=== PATIENT | female | born 1935 | race Caucasian/White ===

== ENCOUNTER 2018-08-25 16:50 | Emergency (ER) | payer OTHER, BC ==
[2018-08-25 17:10] VITALS: BP 187/86; PULSE 82; TEMP 97.7; BMI 23.3
[2018-08-25] MEDS ORDERED: ACETAMINOPHEN 500 MG TABLET (FP) PO ONE (17:17)
--- NOTE | 2018-08-25 17:17 | PDOC ---
Attending Attestation - Resident Resident Name: Shelby Adams - ED Attending Attestation I have performed the following: I have examined & evaluated the patient, The case was reviewed & discussed with the resident, I agree w/resident's findings & plan, Exceptions are as noted - HPI HPI: 08/25/18 17:13 82 yo F with h/o afib on coumadin here s/p slip and fall, fell forward landing on hands and knees. hitting forehead. happened earlier today. hit forehead. no LOC. no neck or back pain. left knee pain worse with walking. no pain when sitting. no hip or ankle pain. pt has had prior , knee surgery [facility] many years ago. did not take naything for pain prior to arrival. did not suffer any abrasions or lacerations. - Physicial Exam PE: 08/25/18 17:14 awake alert head atraumatic. no cervical spine tenderness. lungs clear bilaterally heart rrr no mrg abd soft nt nd. ext wwp. ext wwp . left knee with large hematoma eccymosis anterior. can range to extend to to 120, full flexion. no laxity ankle and hip NT/ - Medical Decision Making 08/25/18 18:34 s/p fall on coumadin, and hit head. plan xray knee r/o fx, hardward misplacement. ct head due to fact on coumadin and hit head. INR to evaluate coagulopathy. xray knee negative for fx.
[2018-08-25] MEDS ORDERED: ACETAMINOPHEN 500 MG TABLET (FP) ONE (17:18)
--- NOTE | 2018-08-25 17:38 | PDOC ---
History of Present Illness - General Chief Complaint: Injury Stated Complaint: left knee pain Time Seen by Provider: 08/25/18 17:10 History Source: Patient Exam Limitations: No Limitations - History of Present Illness Initial Comments: 08/25/18 17:36 Pt is an 82yo F with PMH of Afib (on coumadin), HTN, IDDM, L knee arthroplasty "years ago" presenting to ED s/p fall on carpet at niece's home. She was walking with her cane when she tripped and landed on her knees, hands and hit her forehead. Denies LOC. Knee was painful and swollen. She states the ROM is normal for her, just pain and swelling. No other pain. No chest pain, SOB, foot pain, numbness/tingling. Past History - Past Medical History Allergies/Adverse Reactions: Allergies Allergy/AdvReac Type Severity Reaction Status Date / Time Sulfa (Sulfonamide Allergy Rash Verified 08/25/18 16:51 Antibiotics) Home Medications: Ambulatory Orders Cholecalciferol (Vitamin D3) [Vitamin D-400] 400 unit PO DAILY 08/25/18 Digoxin [Lanoxin -] 0.125 mg PO DAILY 08/25/18 Diltiazem Cd [Cardizem Cd -] 180 mg PO DAILY 08/25/18 Gabapentin 300 mg PO HS 08/25/18 Insulin Aspart [Novolog] 8 unit SQ TID 08/25/18 Insulin Glargine,Hum.rec.anlog [Lantus Solostar] 26 unit SQ HS 08/25/18 Losartan Potassium 100 mg PO DAILY 08/25/18 Metoprolol Succinate 150 mg PO DAILY 08/25/18 Warfarin Na [Coumadin Protocol] 1 each PO ASDIR 08/25/18 Warfarin Sodium [Coumadin] 2 mg PO ASDIR 08/25/18 Cardiac Disorders: Yes COPD: No Diabetes: Yes HTN: Yes - Suicide/Smoking/Psychosocial Hx Smoking History: Never smoked Have you smoked in the past 12 months: No Information on smoking cessation initiated: No Hx Alcohol Use: No Drug/Substance Use Hx: No Review of Systems - Review of Systems Constitutional: No: Symptoms Reported HEENTM: No: Symptoms Reported Respiratory: No: Symptoms reported Cardiac (ROS): No: Symptoms Reported ABD/GI: No: Symptoms Reported : No: Symptoms Reported Musculoskeletal: Yes: See HPI, Joint Swelling (L knee), Other (L knee pain) Integumentary: No: Symptoms Reported Neurological: No: Symptoms reported *Physical Exam - Vital Signs Last Vital Signs Temp Pulse Resp BP Pulse Ox 97.7 F 82 20 187/86 H 98 08/25/18 16:51 08/25/18 16:51 08/25/18 16:51 08/25/18 16:51 08/25/18 16:51 - Physical Exam General Appearance: Yes: Nourished, Appropriately Dressed. No: Apparent Distress HEENT: positive: EOMI, KARO Neck: positive: Trachea midline, Supple Respiratory/Chest: positive: Lungs Clear, Normal Breath Sounds Cardiovascular: positive: S1, S2, Irregularly Irregular. negative: Edema, JVD, Murmur Vascular Pulses: Carotid (R): 2+, Carotid (L): 2+, Dorsalis-Pedis (R): 2+, Doralis-Pedis (L): 2+ Gastrointestinal/Abdominal: positive: Normal Bowel Sounds, Soft. negative: Tender Musculoskeletal: positive: Other (normal ROM. L knee swelling and tenderness). negative: CVA Tenderness Extremity: positive: Normal Capillary Refill, Pelvis Stable. 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 NML intact, Fully Oriented, Alert, Normal Mood/ Affect, Normal Response, Motor Strength 5/5 Moderate Sedation - Procedure Monitoring Vital Signs: Procedure Monitoring Vital Signs Temperature 97.7 F 08/25/18 16:51 Pulse Rate 82 08/25/18 16:51 Respiratory Rate 20 08/25/18 16:51 Blood Pressure 187/86 H 08/25/18 16:51 O2 Sat by Pulse Oximetry (%) 98 08/25/18 16:51 ED Treatment Course - LABORATORY CBC & Chemistry Diagram: 08/25/18 17:22 - RADIOLOGY Radiology Studies Ordered: Category Date Time Status HEAD CT WITHOUT CONTRAST [CT] Stat CT Scan 08/25/18 17:11 Ordered KNEE 2 POS-LEFT [RAD] Stat Radiology 08/25/18 17:14 Ordered - Medications Given in the ED: ED Medications Discontinued Medications Generic Name Dose Route Start Last Admin Trade Name Freq PRN Reason Stop Dose Admin Acetaminophen 1,000 mg 08/25/18 17:17 08/25/18 17:22 Tylenol - PO 08/25/18 17:18 1,000 mg ONCE ONE Administration Medical Decision Making - Medical Decision Making 08/25/18 19:44 Pt is an 82yo F with PMH of Afib (on coumadin), HTN, IDDM, L knee arthroplasty "years ago" presenting to ED s/p fall on carpet at niece's home. She was walking with her cane when she tripped and landed on her knees, hands and hit her forehead. Denies LOC. Knee was painful and swollen. She states the ROM is normal for her, just pain and swelling. No other pain. No chest pain, SOB, foot pain, numbness/tingling. Vitals: wnl PE: L knee swelling and slight tenderness. ROM at baseline. slight bruising. Most likely hematoma. -Xray, Tylenol, PT/INR, CBC, CT head -Xray does not show displacement or fracture. Soft tissue swelling noted. -CT head negative for bleed -INR wnl. CBC shows elevated RBC (PCV) -Will give ortho follow up and knee immobilizer. PT can be dc home *DC/Admit/Observation/Transfer Diagnosis at time of Disposition: Swollen L knee Left knee pain Qualifiers: Chronicity: acute Qualified Code(s): M25.562 - Pain in left knee Fall Qualifiers: Encounter type: initial encounter Qualified Code(s): W19.XXXA - Unspecified fall, initial encounter - Discharge Dispostion Disposition: HOME Condition at time of disposition: Good Decision to Admit order: No - Referrals Referrals: Moshe Olsen MD [Staff Physician] - - Patient Instructions Printed Discharge Instructions: DI for Knee Pain Additional Instructions: You were seen in the emergency room today for knee swelling and pain after falling. It looks like you might have a hematoma. Everything seems to be in place, no new fractures. I highly recommend that you see an orthopedist. You can see the doctor who performed the surgery or you can see Dr. Olsen, Dr. Bergman or Dr. Angelo. Their office is in this hospital. Please try to make an appointment sometime this week, preferably Monday. Address: [address] [place] [address] You can take Tylenol for the pain as needed Come back to the emergency room if swelling gets worse, you cannot move your knee at all, you have increasing pain or if any new concerning symptom develops. Thank you - Post Discharge Activity
[2018-08-25 17:43] LABS: HEMATOCRIT 55.1 % (32.4-45.2); HEMOGLOBIN 18.1 GM/dl (10.7-15.3); MCHC 32.8 g/dl (32.0-36.0); MEAN CELL VOLUME 91.2 fl (80-96); MEAN PLT VOLUME 8.2 fl (7.5-11.1); PLATELET COUNT 291 K/MM3 (134-434); RBC 6.05 M/mm3 (3.60-5.2); RDW 12.9 % (11.6-15.6)
[2018-08-25 17:48] LABS: INR 2.03 (0.82-1.09); PROTHROMBIN TIME (PATIENT) 22.4 SEC (10.2-13.0)
[2018-08-25 19:07] LABS: PLATELET ESTIMATE ADEQUATE
== END 2018-08-25 19:20 | disposition home or self-care (01) ==
LOC: FER 16:50
DX: M25.462 Effusion, left knee (principal); W18.09XA Striking against other object with subsequent fall, initial encounter; Y93.89 Activity, other specified; Y92.89 Other specified places as the place of occurrence of the external cause; I10 Essential (primary) hypertension; E11.9 Type 2 diabetes mellitus without complications; I48.91 Unspecified atrial fibrillation; Z79.01 Long term (current) use of anticoagulants
CPT/HCPCS: 36415; 70450-TC; 73560-TC-LT-FY; 85025; 85610; 99282-25

== ENCOUNTER 2018-09-24 13:43 | Emergency (ER) | payer OTHER, BC ==
[2018-09-24 14:02] VITALS: BP 129/68; PULSE 86; TEMP 98; BMI 22.3
--- NOTE | 2018-09-24 14:26 | PDOC ---
History of Present Illness <RavenMoshe - Last Filed: 09/24/18 18:35> - History of Present Illness Initial Comments: 82 year old female with PMH of PVD, HTN, and Afib (on warfarin) presenting with left lower extremity color change and poikolothermia. Patient was at her PCP's office earlier today and he noted that she had an absent pulse in the left lower extremity and it was cool to touch. There was also question of diminished pulse at the right popliteal fossa. Patient denies any pain in the lower extremities but does state that her left lower extremity is now cooler than before. Denies any recent travel but she did have a mechanical trip and fall with soft tissue trauma and subsequent rehab of her left leg. Her PCP recommended she obtain arterial dopplers bilaterally. She denies any SOB, fevers , chills, cough, palpitations, chest pain, or other symptoms. 09/24/18 18:06 <Cecil Velazquez - Last Filed: 09/25/18 16:56> - General Chief Complaint: Pain Stated Complaint: SENT BY PCP Time Seen by Provider: 09/24/18 14:26 Past History <Moshe Carbajal - Last Filed: 09/24/18 18:35> - Past Medical History Cardiac Disorders: Yes COPD: No Diabetes: Yes HTN: Yes - Suicide/Smoking/Psychosocial Hx Smoking History: Never smoked Have you smoked in the past 12 months: No Hx Alcohol Use: No Drug/Substance Use Hx: No <Cecil Velazquez - Last Filed: 09/25/18 16:56> - Past Medical History Allergies/Adverse Reactions: Allergies Allergy/AdvReac Type Severity Reaction Status Date / Time bee venom protein (honey bee) Allergy Verified 09/24/18 13:55 Sulfa (Sulfonamide Allergy Rash Verified 09/24/18 13:55 Antibiotics) Home Medications: Ambulatory Orders Cholecalciferol (Vitamin D3) [Vitamin D-400] 400 unit PO DAILY 08/25/18 Digoxin [Lanoxin -] 0.125 mg PO DAILY 08/25/18 Diltiazem Cd [Cardizem Cd -] 180 mg PO DAILY 08/25/18 Gabapentin 300 mg PO HS 08/25/18 Insulin Aspart [Novolog] 0 unit SQ TID 08/25/18 Insulin Glargine,Hum.rec.anlog [Lantus Solostar] 42 unit SQ HS 08/25/18 Losartan Potassium 100 mg PO DAILY 08/25/18 Metoprolol Succinate 150 mg PO DAILY 08/25/18 Warfarin Na [Coumadin Protocol] 1 each PO ASDIR 08/25/18 Warfarin Sodium [Coumadin] 2 mg PO ASDIR 08/25/18 Review of Systems - Review of Systems Constitutional: No: Chills, Diaphoresis, Fever HEENTM: No: Eye Pain, Blurred Vision, Tearing Respiratory: No: Cough, Shortness of Breath ABD/GI: No: Diarrhea, Nausea, Vomiting : No: Burning, Dysuria, Discharge Musculoskeletal: No: Back Pain, Joint Pain, Muscle Pain, Muscle Weakness Integumentary: Yes: Change in Color, Erythema. No: Bruising Neurological: No: Headache, Numbness, Paresthesia, Tingling, Tremors, Weakness, Unsteady Gait Hematologic/Lymphatic: Yes: Blood Clots, Easy Bleeding <Cecil Velazquez - Last Filed: 09/25/18 16:56> *Physical Exam - Vital Signs Last Vital Signs Temp Pulse Resp BP Pulse Ox 98 F 86 18 129/68 96 09/24/18 13:59 09/24/18 13:59 09/24/18 13:59 09/24/18 13:59 09/24/18 13:59 <Moshe Carbajal - Last Filed: 09/24/18 18:35> - Vital Signs Last Vital Signs Temp Pulse Resp BP Pulse Ox 98 F 86 18 129/68 96 09/24/18 13:59 09/24/18 13:59 09/24/18 13:59 09/24/18 13:59 09/24/18 13:59 - Physical Exam General Appearance: Yes: Nourished, Appropriately Dressed. No: Apparent Distress HEENT: positive: EOMI, KARO, Normal ENT Inspection, Normal Voice Neck: positive: Trachea midline, Normal Thyroid, Supple. negative: Tender, Rigid Respiratory/Chest: positive: Lungs Clear, Normal Breath Sounds. negative: Chest Tender, Respiratory Distress, Accessory Muscle Use Cardiovascular: positive: Regular Rate, Irregularly Irregular. negative: Regular Rhythm Gastrointestinal/Abdominal: positive: Normal Bowel Sounds, Flat, Soft. negative : Tender Lymphatic: negative: Adenopathy, Tenderness Musculoskeletal: negative: Normal Inspection, Decreased Range of Motion Extremity: positive: Normal Capillary Refill, Normal Range of Motion, Coldness ( rle was cooler than the left with erythema on the central lower anterior right flores. Weakly palbale dorsalis pedis pulse on the right and slightly more palpable DP on the left. ), Erythema. negative: Normal Inspection, Tender Integumentary: positive: Dry, Erythema, Cold. negative: Normal Color, Warm Neurologic: positive: Fully Oriented, Alert, Normal Mood/Affect, Normal Response , Motor Strength 5/5 <Cecil Velazquez - Last Filed: 09/25/18 16:56> ED Treatment Course - LABORATORY CBC & Chemistry Diagram: 09/24/18 15:16 09/24/18 15:16 - ADDITIONAL ORDERS Additional order review: Laboratory Results 09/24/18 09/24/18 09/24/18 15:16 15:16 15:16 PT with INR 19.80 H INR 1.67 H Sodium 135 L Potassium 4.5 Chloride 98 Carbon Dioxide 29 Anion Gap 8 BUN 18 Creatinine 1.0 Creat Clearance w eGFR 53.21 Random Glucose 368 H* Lactic Acid 1.7 Calcium 9.2 Total Bilirubin 1.4 H AST 25 ALT 22 Alkaline Phosphatase 96 Total Protein 7.1 Albumin 3.4 09/24/18 15:16 RBC 5.58 H MCV 91.8 MCHC 32.9 RDW 14.0 MPV 7.9 Neutrophils % 77.9 Lymphocytes % 12.6 Monocytes % 8.2 Eosinophils % 0.8 Basophils % 0.5 <RavenMoshe - Last Filed: 09/24/18 18:35> - LABORATORY CBC & Chemistry Diagram: 09/24/18 15:16 09/24/18 15:16 <Cecil Velazquez - Last Filed: 09/25/18 16:56> Medical Decision Making - Medical Decision Making 82 year old with afib, diabetes, and PVD presenting with cold left lower extremity but palpable DPs in both LEs. Patient is also known to be slightly subtherapeutic on outside labs. Labs here also demonstrated subtherapeutic INR 1.61. Unclear reason for cooler LLE but this is likely related to PVD with urgency to rule out acute embolic event. Our dopplers did not demonstrate acute occlusion in either LE but did demonstrate waveform consistent with afib. Labs also demonstrated elevated blood glucose which she admits she has had trouble with recently. We gave her referrals for Dr. Baker of vascular and Dr. Ricketts of endocrine. She was also informed of her subtherapeutic INR and to address it with her PCP. Patient DC'd with return precautions and follow up instructions. <Cecil Velazquez - Last Filed: 09/25/18 16:56> *DC/Admit/Observation/Transfer <Moshe Carbajal - Last Filed: 09/24/18 18:35> - Discharge Dispostion Decision to Admit order: No <Cecil Velazquez - Last Filed: 09/25/18 16:56> Diagnosis at time of Disposition: Complaint about extremity - Discharge Dispostion Disposition: HOME Condition at time of disposition: Stable - Referrals Referrals: Carla Hills MD [Primary Care Provider] - Trevor Baker MD [Non Staff, Medical] - Marc Ricketts MD [Staff Physician] - - Patient Instructions Printed Discharge Instructions: Peripheral Artery Disease Additional Instructions: You did not have any blockage of your arteries but they are narrower than usual. Your INR level (blood thinness level) was also slightly low today. You need to discuss how to get it in the appropriate range with your primary care doctor. Please follow up with your PCP and Dr. Ricketts (endocrinology) for your diabetes control as your sugar level was very elevated. We also referred you to our vascular surgeon, Dr. Baker with whom you also need to schedule an appointment. Your INR (coumadin level) was 1.6 today, which is slightly low. Please follow up with your primary doctor to have this rechecked. Please return to the ED if you have any new or worsening symptoms. - Post Discharge Activity
[2018-09-24 16:00] LABS: BASO % 0.5 % (0-2.0); EOS % 0.8 % (0-4.5); HEMATOCRIT 51.2 % (32.4-45.2); HEMOGLOBIN 16.9 GM/dL (10.7-15.3); LYMPH % 12.6 % (8-40); MCH 30.2 pg (25.7-33.7); MCHC 32.9 g/dl (32.0-36.0); MEAN CELL VOLUME 91.8 fl (80-96); MEAN PLT VOLUME 7.9 fl (7.5-11.1); MONO % 8.2 % (3.8-10.2); NEUT % 77.9 % (42.8-82.8); PLATELET COUNT 338 K/MM3 (134-434); RBC 5.58 M/mm3 (3.60-5.2); WHITE BLOOD COUNT 10.6 K/mm3 (4.0-10.0)
[2018-09-24 16:19] LABS: INR 1.67 (0.83-1.09); PROTHROMBIN TIME (PATIENT) 19.8 SEC (9.7-13.0)
[2018-09-24 16:30] LABS: ALBUMIN 3.4 g/dl (3.4-5.0); ALK PHOS 96 U/L (45-117); ANION GAP 8 MMOL/L (8-16); BILIRUBIN,TOTAL 1.4 mg/dL (0.2-1); BLOOD UREA NITROGEN 18 mg/dL (7-18); CALCIUM 9.2 mg/dL (8.5-10.1); CHLORIDE 98 mmol/L (98-107); CO2 29 mmol/L (21-32); POTASSIUM 4.5 mmol/L (3.5-5.1); SGOT/AST 25 U/L (15-37); SGPT/ALT 22 U/L (13-61); SODIUM 135 mmol/L (136-145); TOT PROT 7.1 g/dl (6.4-8.2)
[2018-09-24 16:45] LABS: GLUCOSE,RANDOM 368 mg/dL (74-106)
--- NOTE | 2018-09-24 17:17 | PDOC ---
Attending Attestation - Resident Resident Name: Cecil Velazquez - ED Attending Attestation I have performed the following: I have examined & evaluated the patient, The case was reviewed & discussed with the resident, I agree w/resident's findings & plan, Exceptions are as noted - HPI HPI: 09/24/18 16:57 82 F with h/o Afib (on coumadin), HTN, IDDM, L knee arthroplasty, presenting to ED with L foot pain and coldness. Pt states that she fell a month ago and injured her L knee. She came to the ER and had negative imaging. Pt subsequently f/u'ed with ortho, who referred her to PT. Pt states that she initially had a lot of bruising to the knee that eventually tracked down to her L foot. Her L foot has been discolored since. However, over the past 4 days, she began to develop pain in her foot. She also noticed that the foot is significantly colder than the other one. Pt went to her PMD today, who referred her to ER to r/o arterial occlusion. - Physicial Exam PE: 09/24/18 17:01 "GENERAL: Awake, alert, and fully oriented, in no acute distress. HEAD: No signs of trauma EYES: PERRLA, EOMI, sclera anicteric, conjunctiva clear ENT: Auricles normal inspection, hearing grossly normal, nares patent, oropharynx clear without exudates. Moist mucosa NECK: Nontender, no stepoffs, Normal ROM, supple, no lymphadenopathy, JVD, or masses LUNGS: Breath sounds equal, clear to auscultation bilaterally. No wheezes, and no crackles HEART: Regular rate and rhythm, normal S1 and S2, no murmurs, rubs or gallops ABDOMEN: Soft, nontender, normoactive bowel sounds. No guarding, no rebound. No masses EXTREMITIES: LLE with ecchymosis extending from knee to foot, + palpable pulses bilaterally but significantly diminished in L foot, sensation intact NEUROLOGICAL: Cranial nerves II through XII intact. 5/5 strength and sensation in all extremities, Normal speech, normal gait, normal cerebellar function SKIN: + ecchymosis to LLE - Medical Decision Making 09/24/18 17:17 82 F with cold and painful L foot. Has h/o afib, will need to r/o arterial embolus. - Labs, lactate - Arterial doppler 09/24/18 18:19 Labs wnl INR slightly subtherapeutic Doppler negative for acute occlusion Will DC pt with vascular f/u and endocrine Pt is well appearing, with normal vitals. Clinically stable for DC at this time. I discussed the physical exam findings, ancillary test results and final diagnoses with the patient. I answered all of the patient's questions. The patient was satisfied with the care received and felt comfortable with the discharge plan and treatment plan. The patient agrees to follow up with the primary care physician within 24-72 hours.
== END 2018-09-24 18:30 | disposition home or self-care (01) ==
LOC: JER 13:43
DX: I73.89 Other specified peripheral vascular diseases (principal); I10 Essential (primary) hypertension; E11.9 Type 2 diabetes mellitus without complications; Z79.4 Long term (current) use of insulin; I48.91 Unspecified atrial fibrillation; Z79.01 Long term (current) use of anticoagulants
CPT/HCPCS: 36415; 80053; 83605; 85025; 85610; 93925-TC; 99281-25

== ENCOUNTER 2023-05-07 18:35 | Emergency (ER) | payer OTHER, BC ==
[2023-05-07 18:54] VITALS: BP 168/75; PULSE 75; RESP 18; TEMP 97.8; BMI 19.5
== END 2023-05-07 20:49 | disposition home or self-care (01) ==
LOC: FER 18:35
DX: R09.89 Other specified symptoms and signs involving the circulatory and respiratory systems (principal); R07.89 Other chest pain
CPT/HCPCS: 71045-TC-FY; 99283-25